=== PATIENT | female | born 1995 | race Caucasian/White ===

== ENCOUNTER → 2020-01-05 | Outpatient (CLI) | payer BC ==
[~2020-01-05] MED LIST: FOLIC ACID 40400 MCG PO; MOTRIN 800800 MG/TAB PO; NEWMANS TOP; PERCOCET 325 MG1 TA2 PO; PRENATAL PO; PROTONIX 40MG T40 MG PO; TRANDATE 100MG100 MG PO; TRANDATE 200MG200 MG PO; VITAMIN D 1001000 IU PO; ZYRTEC 10MG10 MG PO
== END | disposition still patient (30) ==
LOC: ZCOL.LAB
DX: Z20.828 Contact with and (suspected) exposure to other viral communicable diseases (principal)

== ENCOUNTER 2020-01-11 06:40 | Inpatient (IN) | payer BC ==
[~2020-01-11] VITALS: Ht 155 cm; Wt 93.2 kg
[2020-01-11] VITALS (48 sets, daily range): BP systolic 98–150; BP diastolic 51–94; PULSE 67–101; TEMP 98.1–98.7
[~2020-01-11 06:40] MED LIST changes: -TRANDATE 100MG100 MG PO
--- NOTE | 2020-01-11 07:05 | NUR ---
Patient ambulatory to LR6 with spouse, changed into gown, FHR/TOCO monitors placed and explained. Patient denies any regular contractions/leaking of fluid/vaginal bleeding/decreased movement. Plan of care discussed. 0730: IV started in right hand, blood obtained and to lab, LR infusing. Assessment completed, consents gone over and signed, packet given. 0734: Pitocin induction discussed with patient and patient agrees with plan. Pitocin started at 2mu per protocol at this time
[2020-01-11] MEDS ORDERED: TRANDATE 100MG100 MG PO (07:38)
[2020-01-11 07:58] LABS: BASO # 0.1 (0.0-0.2); BASO % 0.4 % (0.0-2.0); EOS # 0.2 (0.0-0.7); GRAN # 8.2 (1.4-6.5); GRAN % 68.2 % (42.2-75.2); LYMPH # 2.4 (1.2-3.4); LYMPH % 20.2 % (20.0-51.0); MEAN CELL VOLUME 82 fl (80.0-100.0); MEAN CORPUSCULAR HEMOGLOBIN 27 pg (27.0-31.0); MEAN CORPUSCULAR HGB CONC 33 g/dl (33.0-37.0); MEAN PLATELET VOLUME 13.3 fl (7.4-10.4); MONO % 8.5 % (1.7-9.3); PLATELET COUNT 194 K/mm3 (130-400); RED BLOOD COUNT 4.42 M/mm3 (4.10-5.30); REDCELL DISTRIBUTION WIDTH-CV 13.6 % (11.5-14.5)
[2020-01-11 07:59] LABS: HEMATOCRIT 36.4 % (37.0-47.0)
--- NOTE | 2020-01-11 08:40 | NUR ---
Dr. Pa at bedside and assessing patient and FHR strip. SVE-/-2 and AROM attempted at this time and unsuccessful. 0930: Dr. Pa at bedside and SVE per physician /-2 and AROM with clear fluid noted.
--- NOTE | 2020-01-11 12:30 | NUR ---
SVE-3-4/80/-2 and patient requesting epidural at this time and Josy ZAVALETA called and notified.
--- NOTE | 2020-01-11 13:05 | NUR ---
Patient sitting up on edge of bed for placement of epidural. Yesenia Vincent CRNA at bedside. Difficulty tracing FHR due to maternal position. 1318: Single shot given and patient tolerates well. 1323: Test dose given and patient tolerates well. 1330: Patient repositioned and safety precautions gone over. 1350: FHR baseline 135-140bpm and recurrent late declerations noted. 1400: Herrera catheter placed and patient tolerates well. 1405: SVE-4/80/-2 and scalp stimulation noted. Patient right lateral with left leg resting in stirrup. FHR decreasing to 85-90bpm for approx. 60 seconds total and spontaneous return to baseline. 1410: Recurrent late decelerations decreasing to 115-120bpm. Patients blood pressure decreasing after epidural and currently 98/51. 1414: Ephedrine 10mg IV given 1421: Blood pressure-114/55 Will continue to monitor
--- NOTE | 2020-01-11 14:30 | NUR ---
FHR baseline 145bpm and recurrent subtle late decelerations noted. 1430: Blood pressure-106/57 1435: Blood pressure-119/57 1441: Blood pressure-108/57 1443: Ephedrine 10mg IV given. 1445: Blood pressure-125/72 1450: 125/60 and patient repositioned left lateral with right leg resting in stirrup.
--- NOTE | 2020-01-11 17:57 | NUR ---
1515 - SVE by Mikael Saenz, RN 4-5/80/-1. Recurrent late decels noted on FHR strip with intermittent variables. Dr. Pa notified by Mikael Saenz. 1530 - Recurrent late decels continue. FHR drops 15-20 bpm below baseline, returning to baseline or higher by 30 seconds. Contractions not tracing with toco, noted by palpation. Dr. Pa reviewing FHR strip from home, new orders via phone to decrease pitocin to 20mu/ml/hr, start oxygen at 10ml, and rotate pt position to RL with LLS. 1540 - Pt position changed at 1534. FHR decreases from baseline of 150 to 130 over next 2 mins, then increases into 170s-190s over follwing minutes. Moderate variability continues. Dr. Pa phones unit, continuing to monitor FHR strip from home, states she is on her way to unit. 1544 - Dr. Pa at pt bedside. Pitocin stopped, IV bolus of LR given. SVE 5-6/80/-2. FSE placed at 1546. Dr. Pa remains at bedside, monitoring pt and FHR. 1548 - Pt position changed to LL. 1553 - SVE 6/80/-2. FHR tachycardia continues, baseline 190 with accelerations and variable decels. Pt and spouse counseled on probability. 1555 - Decision made by Dr. Pa to go to . Pt and spouse prepped for section. 1604 - Pt taken to OR via bed.
[2020-01-12] VITALS: BP 128/74; PULSE 75; TEMP 97.5
[2020-01-12 04:00] VITALS: BP 117/73; PULSE 67; TEMP 97.7
[2020-01-12] MEDS ORDERED: MOTRIN 800800 MG/TAB PO (07:49)
[2020-01-12] MEDS ORDERED: PERCOCET 325 MG1 TA2 PO (07:49)
[2020-01-12 07:55] VITALS: BP 135/93; PULSE 83; TEMP 97.9
[2020-01-12 12:00] VITALS: BP 126/84; PULSE 80; TEMP 98
[2020-01-12 17:10] VITALS: BP 120/81; PULSE 75; TEMP 98.2
[2020-01-12 18:45] VITALS: BP 128/70; PULSE 81; TEMP 98.2
--- NOTE | 2020-01-12 21:34 | NUR ---
JENNIFERIEN OFFERED AT THIS TIME AND PT REFUSED. SHE REPORTS SHE WILL ASK FOR IT IF SHE HAS TROUBLE SLEEPING.
--- NOTE | 2020-01-13 06:46 | NUR ---
PATIENT ASLEEP. REPORT RECEIVED FROM OFF GOING RN, HARLEY Nunez. CARE TAKEN OVER BY THIS RN.
--- NOTE | 2020-01-13 08:00 | NUR ---
To nursery to visit . Updated on POC.
[2020-01-13] MEDS ORDERED: NEWMANS TOP (08:43)
[2020-01-13 08:54] VITALS: BP 131/88; PULSE 90; TEMP 98.7
--- NOTE | 2020-01-13 09:47 | NUR ---
Into nursery to visit . Updated on POC by Dr. Gilbert.
[2020-01-13 16:00] VITALS: BP 122/71; PULSE 73; TEMP 98.7
[2020-01-13 21:30] VITALS: BP 133/78; PULSE 101; TEMP 98.1
[2020-01-14 07:04] VITALS: BP 128/76; PULSE 98; TEMP 98.1
== END 2020-01-14 11:08 | disposition home or self-care (01) | DRG 787 ==
LOC: OB 06:40 → LDR 06:54 → OB 11:08
PROVIDERS: ADMIT Obstetrics & Gynecology
PROC: 10D00Z1 Extraction of Products of Conception, Low, Open Approach (ICD-10-PCS; principal; 2020-01-11)
DX: O76 Abnormality in fetal heart rate and rhythm complicating labor and delivery (principal); O10.92 Unspecified pre-existing hypertension complicating childbirth; O72.1 Other immediate postpartum hemorrhage; G47.00 Insomnia, unspecified; O90.89 Other complications of the puerperium, not elsewhere classified; O99.824 Streptococcus B carrier state complicating childbirth; Z3A.37 37 weeks gestation of pregnancy; Z37.0 Single live birth
CPT/HCPCS: J0690; J1885; J2270; J2370; J2400; J2405; J2540; J2590; J2795; J7120

== ENCOUNTER 2021-12-21 17:56 | Inpatient (IN) | payer BC ==
[~2021-12-21] VITALS: Ht 154.9 cm; Wt 95.9 kg
[~2021-12-21 17:56] MED LIST changes: +TRANDATE 100MG100 MG PO
[2021-12-24] VITALS (18 sets, daily range): BP systolic 105–160; BP diastolic 52–95; PULSE 61–85; TEMP 98.3–98.6
[2021-12-24] MEDS ORDERED: ZOFRAN 4MG T4 MG/TAB PO (10:13)
[2021-12-24] MEDS ORDERED: TRANDATE 100MG100 MG PO (10:13)
[2021-12-24 10:35] LABS: BASO % 0.4 % (0.0-2.0); EOS # 0.1 K/mm3 (0.0-0.7); EOS % 0.7 % (0.0-4.0); GRAN # 7.3 K/mm3 (1.4-6.5); GRAN % 75.7 % (42.2-75.2); HEMOGLOBIN 11.6 g/dl (12.5-16.0); LYMPH # 1.5 K/mm3 (1.2-3.4); LYMPH % 15.7 % (20.0-51.0); MEAN CELL VOLUME 83 fl (80.0-100.0); MEAN CORPUSCULAR HEMOGLOBIN 27 pg (27-31); MEAN CORPUSCULAR HGB CONC 33 g/dl (33.0-37.0); MEAN PLATELET VOLUME 12.1 fl (7.4-10.4); MONO # 0.7 K/mm3 (0.1-0.6); PLATELET COUNT 171 K/mm3 (130-400); RED BLOOD COUNT 4.26 M/mm3 (4.10-5.30); REDCELL DISTRIBUTION WIDTH-CV 14.1 % (11.5-14.5)
[2021-12-24 10:36] LABS: HEMATOCRIT 35.3 % (37.0-47.0)
--- NOTE | 2021-12-24 13:30 | NUR ---
1330 - SMALL AMOUNT OF DRAINAGE NOTED ON DRESSING. DRAINAGE OUTLINED ON DRESSING FOR MONITORING. CARE ONGOING.
--- NOTE | 2021-12-24 16:15 | NUR ---
1615 - DRAINAGE ON DRESSING REMAINS UNCHANGED FROM EARLIER MARKING. WILL CONTINUE TO MONITOR.
[2021-12-25 02:00] VITALS: BP 116/68; PULSE 65; TEMP 98.5
[2021-12-25 05:00] VITALS: BP 128/68; PULSE 67; TEMP 98.1
[2021-12-25 09:15] VITALS: BP 118/78; PULSE 75; TEMP 98
--- NOTE | 2021-12-25 10:10 | NUR ---
Initial visit; Parents thanked [employer] for offering congratulations and God's blessings for the of their son. [employer] thanked family for choosing [facility].
[2021-12-25 17:00] VITALS: BP 144/89; PULSE 72
--- NOTE | 2021-12-25 18:48 | NUR ---
1845 MOTHER INTO NURSERY TO HOLD INFANT AT THIS TIME. REQUESTS ROXICODONE WHEN SHE GOES BACK TO ROOM.
[2021-12-25 19:15] VITALS: BP 136/88; PULSE 76; TEMP 98
--- NOTE | 2021-12-25 23:19 | NUR ---
4881 PT REQUESTS SOMETHING TO HELP HER SLEEP. TRAZADONE GIVEN AT THIS TIME.
[2021-12-26 07:00] VITALS: BP 124/88; PULSE 77; TEMP 97.6
[2021-12-26] MEDS ORDERED: PERCOCET 325 MG1 TA2 PO (12:10)
[2021-12-26] MEDS ORDERED: MOTRIN 800800 MG/TAB PO (12:10)
== END 2021-12-26 14:00 | disposition home or self-care (01) | DRG 787 ==
LOC: OB 12-24 09:43
PROVIDERS: ADMIT Obstetrics & Gynecology
PROC: 10D00Z1 Extraction of Products of Conception, Low, Open Approach (ICD-10-PCS; principal; 2021-12-24)
DX: O34.211 Maternal care for low transverse scar from previous cesarean delivery (principal); O10.92 Unspecified pre-existing hypertension complicating childbirth; O99.214 Obesity complicating childbirth; O99.62 Diseases of the digestive system complicating childbirth; K21.9 Gastro-esophageal reflux disease without esophagitis; O99.824 Streptococcus B carrier state complicating childbirth; O32.1XX0 Maternal care for breech presentation, not applicable or unspecified; Z3A.37 37 weeks gestation of pregnancy; Z37.0 Single live birth
CPT/HCPCS: J0690; J1885; J2175; J2370; J2405; J2590; J7120